=== PATIENT | female | born 1950 | race Asian ===

== ENCOUNTER 2018-03-16 17:27 | Inpatient (IN) | payer MEDICARE, OTHER ==
[~2018-03-16] VITALS: Ht 149.9 cm; Wt 61.2 kg
[2018-03-16] MEDS ORDERED: MELO-107 PO (17:45)
[2018-03-16] MEDS ORDERED: LORA0.5T2 PO (17:45)
[2018-03-16] MEDS ORDERED: SITA25 PO (17:45)
[2018-03-16] MEDS ORDERED: LOSA1TAB37 PO (17:45)
[2018-03-16] MEDS ORDERED: LOVA20 PO (17:45)
[2018-03-16] MEDS ORDERED: ESCI20TA PO (17:45)
[2018-03-16] MEDS ORDERED: CLON-570 PO (17:45)
[2018-03-16] MEDS ORDERED: OMEP20 PO (17:45)
[2018-03-16 17:49] LABS: GLUCOSE,POINT OF CARE 101 MG/DL (70-110)
[2018-03-16 18:44] LABS: BASOPHILS % (AUTO) 0.4 % (0.0-2.0); HEMATOCRIT 36.6 % (36-46); HEMOGLOBIN 12.3 g/dL (12.0-16.0); LYMPHOCYTES % (AUTO) 35.5 % (22.0-44.0); MEAN CORPUSCULAR HEMOGLOBIN 26.4 pg (26.0-34.0); MEAN CORPUSCULAR HGB CONC 33.5 G/dL (31.0-37.0); MEAN CORPUSCULAR VOLUME 79 fL (80-100); MONOCYTES # (AUTO) 0.5 K/uL (0.1-1.0); MONOCYTES % (AUTO) 5.6 % (2.0-9.0); NEUTROPHILS # (AUTO) 4.8 K/uL (1.8-7.7); NEUTROPHILS % (AUTO) 56.5 % (40.0-70.0); PLATELET COUNT (AUTO) 246 K/uL (150-450); RED BLOOD CELL COUNT(AUTO) 4.65 MIL/uL (4.00-5.20); RED CELL DISTRIBUTION WIDTH 14.2 % (11.5-14.5)
[2018-03-16 18:55] LABS: ANION GAP 6 mmol/L (8-16); CARBON DIOXIDE 31 mmol/L (22-29); CHLORIDE 100 mmol/L (98-107); CREATININE 0.76 mg/dL (0.60-1.30); GLOMERULAR FILTR. RATE CALC > 60 mL/min (>60); GLUCOSE,RANDOM 107 mg/dL (70-110); POTASSIUM 4.3 mmol/L (3.5-5.1); SODIUM SERUM 137 mmol/L (136-145); UREA NITROGEN, BLOOD 19 mg/dL (7-18)
[2018-03-16 19:03] LABS: ALANINE AMINOTRANSFERASE 34 U/L (12-78); ALBUMIN 3.9 g/dL (3.4-5.0); ALKALINE PHOSPHATASE 67 U/L (46-116); ASPARTATE AMINOTRANSFERASE 38 U/L (15-37); BILIRUBIN,TOTAL 0.3 mg/dL (0.1-1.0); TOTAL PROTEIN, SERUM 7.8 g/dL (6.4-8.2)
[2018-03-16] MEDS ORDERED: LABETALOL HCL 5 MG/ML 20 ML VIAL IVP ONE (19:45)
[2018-03-16] MEDS ORDERED: 0.9% SODIUM CHLORIDE 10 ML SYRINGE IVP PRN (20:45)
[2018-03-16] MEDS ORDERED: ONDANSETRON HCL 4 MG/2 ML VIAL IVP PRN ×2 (20:45→22:00)
[2018-03-16] MEDS ORDERED: ASPIRIN 81 MG CHEWABLE TABLET PO ONE (20:45)
[2018-03-16] MEDS ORDERED: ACETAMINOPHEN 325 MG TABLET PO PRN ×2 (20:45→22:00)
[2018-03-16 21:43] VITALS: BP 160/81
[2018-03-16] MEDS ORDERED: MAGNESIUM HYDROXIDE SUSPENSION 30 ML UDCUP PO PRN (22:00)
[2018-03-16] MEDS ORDERED: HydrALAZINE HCL 20 MG/ML VIAL IVP PRN (22:00)
[2018-03-16] MEDS ORDERED: MORPHINE SULFATE 4 MG/ML SYRINGE IVP PRN (22:00)
[2018-03-16] MEDS ORDERED: ZOLPIDEM TARTRATE 5 MG TABLET PO PRN (22:00)
[2018-03-16] MEDS ORDERED: BISACODYL 10 MG RECTAL RECTAL SUPPOSITORY PR PRN (22:00)
[2018-03-16] MEDS ORDERED: HYDROCODONE/ACETAMINOPHEN 5-325 MG TABLET PO PRN (22:00)
[2018-03-16] MEDS ORDERED: PNEUMOCOCCAL VACCINE POLYVALENT 0.5 ML VIAL [PPSV23] IM ONE (23:15)
[2018-03-17 00:02] VITALS: BP 129/65
[2018-03-17] MEDS: HEPARIN SODIUM,PORCINE 5,000 UNITS/ML VIAL SQ SCH ×2 (00:26→08:42)
[2018-03-17 03:28] VITALS: BP 125/68
[2018-03-17 07:21] VITALS: BP 164/84
[2018-03-17] MEDS ORDERED: DOCUSATE SODIUM 100 MG CAPSULE PO SCH (09:00)
[2018-03-17] MEDS ORDERED: LORazepam 0.5 MG TABLET PO SCH (09:00)
[2018-03-17] MEDS ORDERED: PANTOPRAZOLE SODIUM 40 MG DR TABLET PO SCH (09:00)
[2018-03-17] MEDS ORDERED: SitaGLIPtin PHOSPHATE 25 MG TABLET PO SCH (09:00)
[2018-03-17] MEDS ORDERED: MELOXICAM 7.5 MG TABLET PO SCH (09:00)
[2018-03-17] MEDS ORDERED: HYDROCHLOROTHIAZIDE 25 MG TABLET PO SCH (09:00)
[2018-03-17] MEDS ORDERED: LOSARTAN POTASSIUM 50 MG TABLET PO SCH (09:00)
[2018-03-17] MEDS ORDERED: LOVASTATIN 20 MG TABLET PO SCH (09:00)
[2018-03-17] MEDS ORDERED: MISC MED-CONVERTED FROM AMBULATORY (Losartan/Hydrochlorothiazide (Losartan-Hctz 50-12.5 Mg PO SCH (09:00)
[2018-03-17] MEDS ORDERED: CloNIDine HCL 0.1 MG TABLET PO SCH (09:00)
[2018-03-17] MEDS ORDERED: ESCITALOPRAM OXALATE 20 MG TABLET PO SCH (09:00)
[2018-03-17 11:28] VITALS: BP 155/76
== END 2018-03-17 12:40 | disposition home or self-care (01) | DRG 305 ==
LOC: EMS 17:28 → 5N 21:00
PROVIDERS: ADMIT Internal Medicine; ATTEND Internal Medicine
DX: I16.0 Hypertensive urgency (principal); E11.9 Type 2 diabetes mellitus without complications; E78.5 Hyperlipidemia, unspecified; K21.9 Gastro-esophageal reflux disease without esophagitis; F41.9 Anxiety disorder, unspecified; M19.90 Unspecified osteoarthritis, unspecified site; E78.00 Pure hypercholesterolemia, unspecified; I10 Essential (primary) hypertension; Z98.49 Cataract extraction status, unspecified eye; Z82.49 Family history of ischemic heart disease and other diseases of the circulatory system; Z90.89 Acquired absence of other organs
CPT/HCPCS: 70450; 84443; 93005; 96374; G0378; J1644; J3490

== ENCOUNTER → 2018-10-26 | Outpatient (CLI) | payer MEDICARE, OTHER ==
[~2018-10-26] MED LIST: CLON-570 PO; ESCI20TA PO; LORA0.5T2 PO; LOSA1TAB37 PO; LOVA20 PO; MELO-107 PO; OMEP20 PO; SITA25 PO
== END | disposition home or self-care (01) ==
LOC: RADPV 15:05
PROVIDERS: ATTEND Family Medicine
DX: M16.0 Bilateral primary osteoarthritis of hip (principal); M77.9 Enthesopathy, unspecified; M43.16 Spondylolisthesis, lumbar region; M25.78 Osteophyte, vertebrae; M51.86 Other intervertebral disc disorders, lumbar region
CPT/HCPCS: 72100; 73521

== ENCOUNTER → 2019-03-16 | Outpatient (CLI) | payer MEDICARE, OTHER ==
[~2019-03-16] MED LIST changes: -CLON-570 PO; +CLON0.1T83 PO; +LORA-999 PO; -LORA0.5T2 PO
== END | disposition home or self-care (01) ==
LOC: RADPV 10:16
PROVIDERS: ATTEND Family Medicine
DX: M47.812 Spondylosis without myelopathy or radiculopathy, cervical region (principal); M50.821 Other cervical disc disorders at C4-C5 level; M19.90 Unspecified osteoarthritis, unspecified site
CPT/HCPCS: 72040